=== PATIENT | female | born 1995 | race Two or more races ===

== ENCOUNTER 2019-09-22 00:03 | Inpatient (IN) | payer MEDICAID ==
[~2019-09-22] VITALS: Ht 170.2 cm; Wt 204.1 kg
[2019-09-22] MEDS ORDERED: METHYLPREDNISOLONE SOD SUCC 125 MG/2 ML VIAL IV STA (03:12)
[2019-09-22] MEDS ORDERED: ACETAMINOPHEN 325MG TABLET PO STA (03:12)
[2019-09-22] MEDS ORDERED: VANCOMYCIN 1 G PREMIX 200 ML IV STA (03:12)
[2019-09-22] MEDS ORDERED: LEVOFLOXACIN 750MG PREMIX 150 ML IV ONE (03:15)
[2019-09-22] MEDS ORDERED: PIPERACILLIN/TAZ 3.375G PREMIX 50 ML IV ONE (03:15)
[2019-09-22] MEDS ORDERED: ALBUTEROL 6.7GM HFA INHALER ORI ONE (03:15)
[2019-09-22 04:03] LABS: BASOPHILS % 0.2 % (0.0-2.0); HEMATOCRIT. 42.5 % (36.0-48.0); HEMOGLOBIN. 13.7 g/dL (12.0-16.0); LYMPHOCYTES % 17.5 % (20.0-50.0); MEAN CORPUSCULAR HEMOGLOBIN 24.7 pg (28.0-32.0); MEAN CORPUSCULAR VOLUME 76.6 fL (81.0-99.0); MEAN PLATELET VOLUME 8.6 fl (7.4-10.4); MONOCYTES % 7.2 % (2.0-8.0); NEUTROPHILS % 75.1 % (40.0-76.0); PLATELET 224 x1000/uL (130-400); RED BLOOD CELL COUNT 5.55 mill/uL (4.2-5.4); RED CELL DISTRIBUTION WIDTH 17.1 % (11.6-14.6)
[2019-09-22 04:04] LABS: CHLORIDE 103 mEq/L (98-107)
[2019-09-22 04:14] LABS: INR 1.1; PROTHROMBIN TIME 11.3 sec (9.6-11.0)
[2019-09-22 06:31] LABS: CLARITY URINE CLEAR (CLEAR); COLOR URINE YELLOW (YELLOW); KETONES URINE NEGATIVE (NEGATIVE); LEUKOCYTE ESTERASE URINE NEGATIVE (NEGATIVE); NITRITE URINE NEGATIVE (NEGATIVE); OCCULT BLOOD URINE 3+ (NEGATIVE); PROTEIN URINE 2+ (NEGATIVE); SPECIFIC GRAVITY URINE 1.015 (1.005-1.030)
[2019-09-22 10:00] VITALS: BP 157/75
[2019-09-22] MEDS ORDERED: ONDANSETRON HCL 4MG/2ML INJ IV PRN (12:00)
[2019-09-22] MEDS ORDERED: CLONIDINE 0.1MG TABLET PO PRN (12:00)
[2019-09-22] MEDS ORDERED: CEFTRIAXONE 1 G PREMIX 50 ML IV SCH (12:00)
[2019-09-22] MEDS ORDERED: DOCUSATE SODIUM 100MG CAPSULE PO PRN (12:00)
[2019-09-22] MEDS ORDERED: HYDROCODONE/ACETAMINOPHEN 5/325MG TABLET PO PRN (12:00)
[2019-09-22] MEDS ORDERED: AZITHROMYCIN 500 MG in DEXT 5% WATER 250 ML IV SCH (12:00)
[2019-09-22] MEDS ORDERED: MAGNESIUM/ALUMINUM HYDROXIDE/SIMETHICONE 30ML UDC PO PRN (12:00)
[2019-09-22] MEDS ORDERED: ENOXAPARIN 40MG/0.4ML SYR SUBCUT SCH (12:30)
[2019-09-22] MEDS: DEXAMETHASONE 4MG/ML 1ML VIAL IV SCH ×2 (12:37→17:54)
[2019-09-22] MEDS: CEFTRIAXONE 1,000 MG in DEXTROSE 5% WATER 50 ML IV SCH (14:31)
[2019-09-22] MEDS: AZITHROMYCIN 500MG in DEXTROSE 5% WATER 250ML IV SCH (14:31)
[2019-09-22 16:00] VITALS: BP 152/83
[2019-09-22] MEDS: ACETAMINOPHEN 325MG TABLET PO PRN (17:55)
[2019-09-22 20:00] VITALS: BP 152/76
[2019-09-22] MEDS: ENOXAPARIN 150MG/ML SYR SUBCUT SCH (20:31)
[2019-09-22] MEDS: ALBUTEROL 6.7GM HFA INHALER ORI SCH (23:45)
[2019-09-23] VITALS (7 sets, daily range): BP systolic 126–158; BP diastolic 71–90
[2019-09-23] MEDS: ALBUTEROL 6.7GM HFA INHALER ORI SCH ×6 (00:50→21:41)
[2019-09-23 02:03] LABS: *AMPHETAMINES SCREEN URINE NEGATIVE (NEGATIVE); *BARBITURATES SCREEN URINE NEGATIVE (NEGATIVE); *BENZODIAZEPINES SCREEN URINE NEGATIVE (NEGATIVE); *COCAINE SCREEN URINE NEGATIVE (NEGATIVE); METHADONE URINE SCREEN NEGATIVE (NEGATIVE)
[2019-09-23 02:04] LABS: CANNABINOID URINE SCREEN NEGATIVE (NEGATIVE); PHENCYCLIDINE URINE SCREEN NEGATIVE (NEGATIVE)
[2019-09-23 02:05] LABS: OPIATES URINE SCREEN PRESUMTIVE POSITIVE (NEGATIVE)
[2019-09-23] MEDS: ACETAMINOPHEN 325MG TABLET PO PRN (05:12)
[2019-09-23] MEDS: ENOXAPARIN 150MG/ML SYR SUBCUT SCH ×2 (08:38→21:41)
[2019-09-23] MEDS: DEXAMETHASONE 10 MG/ML VIAL IV SCH (08:39)
[2019-09-23] MEDS: PANTOPRAZOLE SODIUM 40 MG/VIAL IV SCH ×2 (09:00→09:41)
[2019-09-23 09:56] LABS: BG BASE EXCESS -0.2 mmol/L (-2.0-2.0); BG CARBOXYHEMOGLOBIN 0.7 % (0.5-1.5); BG DEOXYHEMOGLOBIN 9.2 % (0.0-5.0); BG FRACTION INSPIRED OXYGEN 100; BG HCO3 ACT 25.7 mmol/L (22.0-26.0); BG METHEMOGLOBIN 0.2 % (0.0-1.5); BG OXYGEN SATURATION 90.7 % (92.0-98.5); BG OXYHEMOGLOBIN 89.9 % (94.0-97.0); BG PCO2 46.7 mmHg (35.0-45.0); BG PH 7.358 (7.350-7.450); BG SAMPLE SITE RIGHT RADIAL; BG VENT MODE MASK - NRB
[2019-09-23] MEDS: CEFTRIAXONE 1,000 MG in DEXTROSE 5% WATER 50 ML IV SCH (13:14)
[2019-09-23] MEDS: AZITHROMYCIN 500MG in DEXTROSE 5% WATER 250ML IV SCH (15:36)
[2019-09-23] MEDS ORDERED: REMDESIVIR 200 MG in SODIUM CHLORIDE 0.9% 250 ML IV SCH (16:00)
[2019-09-24] VITALS: BP 138/63
[2019-09-24] MEDS: ALBUTEROL 6.7GM HFA INHALER ORI SCH ×5 (03:38→20:53)
[2019-09-24 04:00] VITALS: BP 149/70
[2019-09-24 08:00] VITALS: BP 143/65
[2019-09-24] MEDS: DEXAMETHASONE 10 MG/ML VIAL IV SCH (08:16)
[2019-09-24] MEDS: PANTOPRAZOLE SODIUM 40 MG/VIAL IV SCH (08:16)
[2019-09-24] MEDS: ENOXAPARIN 150MG/ML SYR SUBCUT SCH ×2 (08:17→20:33)
[2019-09-24 12:00] VITALS: BP 105/56
[2019-09-24] MEDS: ACETAMINOPHEN 325MG TABLET PO PRN (12:22)
[2019-09-24] MEDS: CEFTRIAXONE 1,000 MG in DEXTROSE 5% WATER 50 ML IV SCH ×2 (14:00→15:07)
[2019-09-24] MEDS: AZITHROMYCIN 500MG in DEXTROSE 5% WATER 250ML IV SCH ×2 (15:00→15:07)
[2019-09-24 16:00] VITALS: BP 134/63
[2019-09-24] MEDS: REMDESIVIR 100 MG in SODIUM CHLORIDE 0.9% 250 ML IV SCH (16:34)
[2019-09-24 20:00] VITALS: BP 129/68
[2019-09-24] MEDS: FAMOTIDINE 20MG/2ML VIAL IV SCH (20:33)
[2019-09-25] VITALS (7 sets, daily range): BP systolic 108–158; BP diastolic 58–83
[2019-09-25] MEDS: DEXAMETHASONE 10 MG/ML VIAL IV SCH (09:19)
[2019-09-25] MEDS: FAMOTIDINE 20MG/2ML VIAL IV SCH (09:19)
[2019-09-25] MEDS: ENOXAPARIN 150MG/ML SYR SUBCUT SCH ×2 (09:20→21:12)
[2019-09-25] MEDS: CEFTRIAXONE 1,000 MG in DEXTROSE 5% WATER 50 ML IV SCH (14:06)
[2019-09-25] MEDS: AZITHROMYCIN 500 MG TABLET PO SCH (14:07)
[2019-09-25] MEDS: REMDESIVIR 100 MG in SODIUM CHLORIDE 0.9% 250 ML IV SCH (16:31)
[2019-09-25] MEDS: ALBUTEROL 6.7GM HFA INHALER ORI SCH ×3 (16:59→21:12)
[2019-09-25 20:23] LABS: CHLORIDE 102 mEq/L (98-107)
[2019-09-25] MEDS: FAMOTIDINE 20MG TABLET PO SCH (21:12)
[2019-09-26] VITALS (9 sets, daily range): BP systolic 116–141; BP diastolic 55–77
[2019-09-26] MEDS: ALBUTEROL 6.7GM HFA INHALER ORI SCH ×6 (00:15→20:05)
[2019-09-26 06:20] LABS: CHLORIDE 103 mEq/L (98-107)
[2019-09-26] MEDS: ENOXAPARIN 150MG/ML SYR SUBCUT SCH ×2 (08:26→20:01)
[2019-09-26] MEDS: FAMOTIDINE 20MG TABLET PO SCH ×2 (08:26→20:05)
[2019-09-26] MEDS: DEXAMETHASONE 10 MG/ML VIAL IV SCH (08:26)
[2019-09-26 12:11] LABS: BG BASE EXCESS 6.2 mmol/L (-2.0-2.0); BG CARBOXYHEMOGLOBIN 0.3 % (0.5-1.5); BG DEOXYHEMOGLOBIN 8.3 % (0.0-5.0); BG FRACTION INSPIRED OXYGEN 99.8; BG HCO3 ACT 31.7 mmol/L (22.0-26.0); BG METHEMOGLOBIN 0.2 % (0.0-1.5); BG OXYGEN SATURATION 91.7 % (92.0-98.5); BG OXYHEMOGLOBIN 91.2 % (94.0-97.0); BG PCO2 49.2 mmHg (35.0-45.0); BG PH 7.427 (7.350-7.450); BG PO2 64.9 mmHg (75.0-100.0); BG SAMPLE SITE LEFT RADIAL; BG TOTAL HEMOGLOBIN 12.8 g/dL (12.0-18.0); BG VENT MODE MASK - NRB
[2019-09-26] MEDS: CEFTRIAXONE 1,000 MG in DEXTROSE 5% WATER 50 ML IV SCH (13:46)
[2019-09-26] MEDS: AZITHROMYCIN 500 MG TABLET PO SCH (14:23)
[2019-09-26] MEDS: REMDESIVIR 100 MG in SODIUM CHLORIDE 0.9% 250 ML IV SCH (15:03)
[2019-09-26] MEDS: ACETAMINOPHEN 325MG TABLET PO PRN (15:11)
[2019-09-27 00:05] VITALS: BP 135/85
[2019-09-27] MEDS: ALBUTEROL 6.7GM HFA INHALER ORI SCH ×3 (00:40→20:38)
[2019-09-27 04:00] VITALS: BP 134/74
[2019-09-27 05:21] LABS: CHLORIDE 102 mEq/L (98-107)
[2019-09-27 08:00] VITALS: BP 128/98
[2019-09-27] MEDS: DEXAMETHASONE 10 MG/ML VIAL IV SCH (09:25)
[2019-09-27] MEDS: ENOXAPARIN 150MG/ML SYR SUBCUT SCH ×2 (09:26→20:38)
[2019-09-27] MEDS: FAMOTIDINE 20MG TABLET PO SCH ×2 (12:31→20:38)
[2019-09-27] MEDS: CEFTRIAXONE 1,000 MG in DEXTROSE 5% WATER 50 ML IV SCH (14:18)
[2019-09-27] MEDS: AZITHROMYCIN 500 MG TABLET PO SCH (14:18)
[2019-09-27] MEDS: REMDESIVIR 100 MG in SODIUM CHLORIDE 0.9% 250 ML IV SCH (15:40)
[2019-09-27 20:00] VITALS: BP 139/69
[2019-09-28] VITALS: BP 125/63
[2019-09-28] MEDS: ALBUTEROL 6.7GM HFA INHALER ORI SCH ×6 (00:04→20:13)
[2019-09-28 04:00] VITALS: BP 126/71
[2019-09-28 08:00] VITALS: BP 131/72
[2019-09-28] MEDS: FAMOTIDINE 20MG TABLET PO SCH ×2 (08:16→20:11)
[2019-09-28] MEDS: ENOXAPARIN 150MG/ML SYR SUBCUT SCH ×2 (08:16→20:11)
[2019-09-28] MEDS: DEXAMETHASONE 10 MG/ML VIAL IV SCH (08:36)
[2019-09-28 11:27] LABS: BASOPHILS % 0.2 % (0.0-2.0); EOSINOPHILS % 0.2 % (0.0-5.0); HEMATOCRIT. 37.4 % (36.0-48.0); HEMOGLOBIN. 11.9 g/dL (12.0-16.0); LYMPHOCYTES % 17.4 % (20.0-50.0); MEAN CORPUSCULAR HEMOGLOBIN 24.5 pg (28.0-32.0); MEAN CORPUSCULAR VOLUME 76.6 fL (81.0-99.0); MEAN PLATELET VOLUME 8.5 fl (7.4-10.4); MONOCYTES % 8.9 % (2.0-8.0); NEUTROPHILS % 73.3 % (40.0-76.0); PLATELET 327 x1000/uL (130-400); RED BLOOD CELL COUNT 4.88 mill/uL (4.2-5.4); RED CELL DISTRIBUTION WIDTH 16.1 % (11.6-14.6)
[2019-09-28 11:32] LABS: CHLORIDE 102 mEq/L (98-107)
[2019-09-28 12:00] VITALS: BP 117/72
[2019-09-28 16:00] VITALS: BP 128/71
[2019-09-28 20:00] VITALS: BP 134/71
[2019-09-29] VITALS: BP 126/68
[2019-09-29] MEDS: ALBUTEROL 6.7GM HFA INHALER ORI SCH ×6 (00:58→20:00)
[2019-09-29 04:00] VITALS: BP 128/70
[2019-09-29 07:33] LABS: CHLORIDE 102 mEq/L (98-107)
[2019-09-29 08:00] VITALS: BP 130/75
[2019-09-29] MEDS: FAMOTIDINE 20MG TABLET PO SCH ×2 (08:50→20:49)
[2019-09-29] MEDS: ENOXAPARIN 150MG/ML SYR SUBCUT SCH ×2 (08:50→20:49)
[2019-09-29] MEDS: DEXAMETHASONE 10 MG/ML VIAL IV SCH (08:53)
[2019-09-29 10:16] LABS: BG BASE EXCESS 5.1 mmol/L (-2.0-2.0); BG CARBOXYHEMOGLOBIN 0.2 % (0.5-1.5); BG DEOXYHEMOGLOBIN 4.1 % (0.0-5.0); BG FRACTION INSPIRED OXYGEN 100; BG METHEMOGLOBIN 0.2 % (0.0-1.5); BG OXYGEN SATURATION 95.9 % (92.0-98.5); BG OXYHEMOGLOBIN 95.5 % (94.0-97.0); BG PCO2 51.4 mmHg (35.0-45.0); BG PH 7.398 (7.350-7.450); BG PO2 83.8 mmHg (75.0-100.0); BG SAMPLE SITE RIGHT RADIAL; BG TOTAL HEMOGLOBIN 12.5 g/dL (12.0-18.0); BG VENT MODE MASK - NRB
[2019-09-29 12:00] VITALS: BP 150/68
[2019-09-29 16:00] VITALS: BP 110/65
[2019-09-29 20:00] VITALS: BP 109/59
[2019-09-30] VITALS: BP 122/67
[2019-09-30] MEDS: ALBUTEROL 6.7GM HFA INHALER ORI SCH ×5 (00:59→20:02)
[2019-09-30 04:00] VITALS: BP 138/72
[2019-09-30 08:00] VITALS: BP 129/78
[2019-09-30] MEDS: DEXAMETHASONE 10 MG/ML VIAL IV SCH (08:11)
[2019-09-30] MEDS: FAMOTIDINE 20MG TABLET PO SCH ×2 (08:11→20:05)
[2019-09-30] MEDS: ENOXAPARIN 150MG/ML SYR SUBCUT SCH ×2 (08:11→20:05)
[2019-09-30 12:00] VITALS: BP 137/86
[2019-09-30 16:00] VITALS: BP 127/53
[2019-09-30 17:01] LABS: BG BASE EXCESS 3.3 mmol/L (-2.0-2.0); BG CARBOXYHEMOGLOBIN 0.5 % (0.5-1.5); BG DEOXYHEMOGLOBIN 9.3 % (0.0-5.0); BG FRACTION INSPIRED OXYGEN 21; BG HCO3 ACT 27.6 mmol/L (22.0-26.0); BG METHEMOGLOBIN 0.2 % (0.0-1.5); BG OXYGEN SATURATION 90.6 % (92.0-98.5); BG PCO2 40.7 mmHg (35.0-45.0); BG PH 7.449 (7.350-7.450); BG PO2 59.7 mmHg (75.0-100.0); BG SAMPLE SITE RIGHT RADIAL; BG TOTAL HEMOGLOBIN 13.7 g/dL (12.0-18.0); BG VENT MODE ROOM AIR
[2019-09-30 20:00] VITALS: BP 142/74
[2019-10-01] VITALS: BP 132/70
[2019-10-01] MEDS: ALBUTEROL 6.7GM HFA INHALER ORI SCH ×5 (00:42→16:00)
[2019-10-01 04:00] VITALS: BP 148/75
[2019-10-01 08:00] VITALS: BP 137/74
[2019-10-01] MEDS: ENOXAPARIN 150MG/ML SYR SUBCUT SCH (09:01)
[2019-10-01] MEDS: DEXAMETHASONE 10 MG/ML VIAL IV SCH (09:02)
[2019-10-01 12:00] VITALS: BP 125/76
[2019-10-01] MEDS: FAMOTIDINE 20MG TABLET PO SCH (12:12)
[2019-10-01] MEDS ORDERED: DEXA4TAB MT (14:52)
[2019-10-01] MEDS ORDERED: ALBU18HF2 IH (14:52)
[2019-10-01] MEDS ORDERED: DEXA6TAB PO (14:52)
[2019-10-01 15:35] VITALS: BP 120/66
[2019-10-01 15:50] VITALS: BP 120/66
[2019-10-02] MEDS ORDERED: DEXAMETHASONE 4MG TABLET PO SCH (09:00)
== END 2019-10-01 17:34 | disposition home or self-care (01) | DRG 720 ==
LOC: ER 00:03 → EDBEDREQ 03:43 → ENRESERV 07:04 → 7WST 09:30
PROVIDERS: ADMIT Internal Medicine; ATTEND Internal Medicine
PROC: XW033E5 Introduction of Remdesivir Anti-infective into Peripheral Vein, Percutaneous Approach, New Technology Group 5 (ICD-10-PCS; principal; 2019-09-23)
PROC: XW033E5 Introduction of Remdesivir Anti-infective into Peripheral Vein, Percutaneous Approach, New Technology Group 5 (ICD-10-PCS; 2019-09-24)
PROC: 30233K1 Transfusion of Nonautologous Frozen Plasma into Peripheral Vein, Percutaneous Approach (ICD-10-PCS; 2019-09-26)
DX: A41.89 Other specified sepsis (principal); U07.1 COVID-19; J96.01 Acute respiratory failure with hypoxia; J12.89 Other viral pneumonia; E66.2 Morbid (severe) obesity with alveolar hypoventilation; I51.7 Cardiomegaly; Z68.45 Body mass index [BMI] 70 or greater, adult
CPT/HCPCS: 36415; 36600; 71045; 80053; 80305; 81003; 82375; 82728; 82805; 83605; 83615; 83880; 84484; 85025; 85379; 86140; 86850; 86900; 86927; 87635; 93005; 93970; 94640; 99285; C9113; J0456; J0696; J1100; J1650; J1956; J2543; J2930; J3370; J3490; J7050; J7060; P9017; Q9957